=== PATIENT | female | born 1985 | race Caucasian/White ===

== ENCOUNTER 2018-03-11 16:37 | Emergency (ER) | payer OTHER ==
--- NOTE | 2018-03-11 17:01 | EDPHY ---
H & P Stated Complaint: L sided abd pain since thursday Time Seen by Provider: 03/11/18 16:54 - Personal History LMP (Females 10-55): 8-14 Days Ago Current Tetanus/Diphtheria Vaccine: Unsure Current Tetanus Diphtheria and Acellular Pertussis (TDAP): Unsure - Medical/Surgical History Hx Asthma: No Hx Chronic Respiratory Disease: No Hx Diabetes: No Hx Cardiac Disease: No Hx Renal Disease: No Hx Cirrhosis: No Hx Alcoholism: No Hx HIV/AIDS: No Hx Splenectomy or Spleen Trauma: No Other PMH: hypothyroid, L oopherctomy, IBS - Social History Smoking Status: Never smoked Constitutional: Initial Vital Signs Temperature (C) 37 C 03/11/18 16:40 Heart Rate 95 03/11/18 16:40 Respiratory Rate 16 03/11/18 16:40 Blood Pressure 120/77 03/11/18 16:40 O2 Sat (%) 99 03/11/18 16:40 O2 Delivery Mode Room Air Allergies/Adverse Reactions: cephalexin [From Keflex] Allergy (Verified 03/11/18 16:42) Medical Decision Making - Diagnostics Imaging Results: Imaging Impressions Pelvic/Renal Ultrasound 03/11/18 17:16 Impression: Negative ultrasound of the pelvis. Prior left nephrectomy. Results called to Dr. Gamal Hsu at 6:30 PM. Abdomen Ultrasound 03/11/18 17:36 Impression: 1. Normal ultrasound examination of the abdomen. Abdomen CT 03/11/18 18:35 Impression: 1. Moderate stool in the proximal colon. 2. Additional findings as above. Findings discussed with Dr. Gamal Hsu on March 11, 2018 at 1929 hours. Imaging: Discussed imaging studies w/ telecommunications operator Radiologist, I viewed and interpreted images myself ED Course/Re-evaluation: CHIEF COMPLAINT: Abdominal pain HISTORY OF PRESENT ILLNESS: The patient is a 32 y/o female with a history of IBS and a left-sided oophorectomy complaining of abdominal pain and nausea onset 3 days ago. For the last several years, she has had intermittent episodes of abdominal pain. Initially the patient was diagnosed with constipation and advised to have an enema which provided relief for 1 day. After the pain did not improve she saw a safety administrator who diagnosed the patient with IBS and pelvic floor dysfunction. Prior to onset of symptoms the patient had a dry cough, nausea, and hyperactive gag reflex so she saw her physician who thought she had an ulcer and started the patient on pantoprazole. On Thursday, 6 days ago, after starting the medication the patient's symptoms worsened. For the past three days she developed abdominal pain and diarrhea. Her symptoms did not improve after taking a laxative. She is still having abdominal pain. She is taking Bentyl for her symptoms. Her last colonoscopy was in 2012. Denies headache, chest pain, shortness of breath, urinary complaints, numbness, paresthesias, fever. REVIEW OF SYSTEMS: A 10 point review of systems was performed and is negative with the exception of the elements mentioned in the history of present illness. PHYSICAL EXAM: HR, BP, O2 Sat, RR. Temp noted General Appearance: Alert, nervous, well hydrated, appropriate, and non-toxic appearing. Head: Atraumatic without scalp tenderness or obvious injury Eyes: Pupils equal, round, reactive to light and accommodation, EOMI, no trauma , no injection. Ears: Clear bilaterally, no perforation, normal landmarks Nose: Atraumatic, no rhinorrhea, clear. Throat: There is no erythema or exudates, no lesions, normal tonsils, mucus membranes moist. Neck: Supple, nontender, no lymphadenopathy. Respiratory: No retractions, no distress, no wheezes, and no accessory muscle use. Lungs are clear to auscultation bilaterally. Cardiovascular: Regular rate and rhythm, no murmurs, rubs, or gallops. Good capillary refill all extremities. Gastrointestinal: Severe LLQ tenderness with voluntary guarding. Abdomen is soft, non-distended, no masses, no rebound, no peritoneal signs. Musculoskeletal: Normal active ROM of all extremities, atraumatic. Neurological: Alert, appropriate, and interactive. Nonfocal neuro. Skin: No rashes, good turgor, no nodules on palpation. Past medical history: Hypothyroid, IBS Past surgical history: Left oophorectomy Family history: Denies Social history: Visiting [place] from [place], single, employed DIAGNOSTICS/PROCEDURES/CRITICAL CARE TIME: Abdominal and Pelvic US: No acute findings. Abdominopelvic CT: No acute findings. There is minimal evidence of constipation. DIFFERENTIAL DIAGNOSIS: The differential diagnosis for the patient's abdominal pain included but was not limited to ovarian cyst, pelvic inflammatory disease, ovarian torsion, urinary tract infection, ectopic , cholecystitis, and appendicitis. MEDICAL DECISION MAKING: The patient is a 32 y/o female with an extensive history of IBS and a left- sided oophorectomy presenting with abdominal pain and nausea onset 3 days ago. On exam she has severe LLQ tenderness with voluntary guarding. Labs, abdomen and pelvic US ordered; 50mcg IV Fentanyl and 1L IV NS given. She is denying Zofran at this time. 1835: Spoke with radiologist who reports that the patient has a negative US; abdominopelvic CT ordered. 1844: Reassessed patient and discussed US and laboratory findings. She is comfortable with plan for CT. 1929: Spoke with Dr. Man, radiologist, who reports that there are no acute finding on patient's abdominopelvic CT. 1999: Reassessed patient and discussed normal CT findings. She is feeling mildly better. As she is visiting from [place], I have advised her to follow up at the [facility] with regards to her chronic abdominal pain. She will be discharged with a Vicodin prescription. Return precautions provided; patient is comfortable with this plan. - Data Points Laboratory Results: Laboratory Results 03/11/18 17:00 03/11/18 17:00 03/11/18 03/11/18 03/11/18 17:00 17:00 17:00 WBC RBC Hgb Hct MCV MCH MCHC RDW Plt Count MPV Neut % (Auto) Lymph % (Auto) Merrick % (Auto) Eos % (Auto) Baso % (Auto) Nucleat RBC Rel Count Absolute Neuts (auto) Absolute Lymphs (auto) Absolute Monos (auto) Absolute Eos (auto) Absolute Basos (auto) Absolute Nucleated RBC Immature Gran % Immature Gran # Sodium 142 mEq/L mEq/L (135-145) Potassium 3.4 mEq/L mEq/L (3.3-5.0) Chloride 106 mEq/L mEq/L (97-110) Carbon Dioxide 22 mEq/l mEq/l (22-31) Anion Gap 14 mEq/L mEq/L (8-16) BUN 7 mg/dL mg/dL (7-23) Creatinine 0.6 mg/dL mg/dL (0.6-1.0) Estimated GFR > 60 Glucose 80 mg/dL mg/dL (70-100) Calcium 9.6 mg/dL mg/dL (8.5-10.4) Total Bilirubin 0.6 mg/dL mg/dL (0.1-1.4) Conjugated Bilirubin 0.2 mg/dL mg/dL (0.0-0.5) Unconjugated Bilirubin 0.4 mg/dL mg/dL (0.0-1.1) AST 29 IU/L IU/L (14-46) ALT 23 IU/L IU/L (9-52) Alkaline Phosphatase 67 IU/L IU/L (38-126) Total Protein 8.3 g/dL H g/dL (6.3-8.2) Albumin 5.1 g/dL H g/dL (3.5-5.0) Lipase 194 IU/L IU/L (23-300) Beta HCG, Qual NEGATIVE Urine Color PALE YELLOW Urine Appearance CLEAR Urine pH 6.0 (5.0-7.5) Ur Specific Watson 1.001 L (1.002-1.030) Urine Protein NEGATIVE (NEGATIVE) Urine Ketones NEGATIVE (NEGATIVE) Urine Blood NEGATIVE (NEGATIVE) Urine Nitrate NEGATIVE (NEGATIVE) Urine Bilirubin NEGATIVE (NEGATIVE) Urine Urobilinogen NEGATIVE EU EU (0.2-1.0) Ur Leukocyte Esterase NEGATIVE (NEGATIVE) Urine RBC 1-3 /hpf /hpf (0-3) Urine WBC 1-3 /hpf /hpf (0-3) Ur Epithelial Cells NONE SEEN /lpf /lpf (NONE-1+) Urine Glucose NEGATIVE (NEGATIVE) 03/11/18 17:00 WBC 5.81 10^3/uL 10^3/uL (3.80-9.50) RBC 4.48 10^6/uL 10^6/uL (4.18-5.33) Hgb 14.0 g/dL g/dL (12.6-16.3) Hct 41.2 % % (38.0-47.0) MCV 92.0 fL fL (81.5-99.8) MCH 31.3 pg pg (27.9-34.1) MCHC 34.0 g/dL g/dL (32.4-36.7) RDW 12.5 % % (11.5-15.2) Plt Count 196 10^3/uL 10^3/uL (150-400) MPV 11.0 fL fL (8.7-11.7) Neut % (Auto) 61.6 % % (39.3-74.2) Lymph % (Auto) 29.4 % % (15.0-45.0) Merrick % (Auto) 7.1 % % (4.5-13.0) Eos % (Auto) 1.0 % % (0.6-7.6) Baso % (Auto) 0.7 % % (0.3-1.7) Nucleat RBC Rel Count 0.0 % % (0.0-0.2) Absolute Neuts (auto) 3.58 10^3/uL 10^3/uL (1.70-6.50) Absolute Lymphs (auto) 1.71 10^3/uL 10^3/uL (1.00-3.00) Absolute Monos (auto) 0.41 10^3/uL 10^3/uL (0.30-0.80) Absolute Eos (auto) 0.06 10^3/uL 10^3/uL (0.03-0.40) Absolute Basos (auto) 0.04 10^3/uL 10^3/uL (0.02-0.10) Absolute Nucleated RBC 0.00 10^3/uL 10^3/uL (0-0.01) Immature Gran % 0.2 % % (0.0-1.1) Immature Gran # 0.01 10^3/uL 10^3/uL (0.00-0.10) Sodium Potassium Chloride Carbon Dioxide Anion Gap BUN Creatinine Estimated GFR Glucose Calcium Total Bilirubin Conjugated Bilirubin Unconjugated Bilirubin AST ALT Alkaline Phosphatase Total Protein Albumin Lipase Beta HCG, Qual Urine Color Urine Appearance Urine pH Ur Specific Watson Urine Protein Urine Ketones Urine Blood Urine Nitrate Urine Bilirubin Urine Urobilinogen Ur Leukocyte Esterase Urine RBC Urine WBC Ur Epithelial Cells Urine Glucose Medications Given: Discontinued Medications Fentanyl (Sublimaze) 50 mcg IVP EDNOW ONE Stop: 03/11/18 17:16 Last Admin: 03/11/18 17:34 Dose: 50 mcg Sodium Chloride (Ns) 1,000 mls @ 0 mls/hr IV EDNOW ONE; Wide Open PRN Reason: Protocol Stop: 03/11/18 17:16 Last Admin: 03/11/18 17:35 Dose: 1,000 mls Departure - Departure Disposition: Home, Routine, Self-Care Clinical Impression: Abdominal pain Qualifiers: Abdominal location: left lower quadrant Qualified Code(s): R10.32 - Left lower quadrant pain Instructions: Irritable Bowel Syndrome (ED), Acute Abdominal Pain (ED), Chronic Abdominal Pain (ED) Additional Instructions: 1. Take Vicodin as prescribed. 2. Follow up with Dr. Castillo, safety administrator, regarding your chronic abdominal pain. 3. Follow up at the [facility] if possible with regards to your abdominal pain. 4. Return to the emergency apartment for fever, severe pain, inability to urinate or other concerns. Referrals: [facility] [Other] - As per Instructions Guero Castillo MD [Medical Doctor] - As per Instructions Report Scribed for: Gamal Hsu Report Scribed by: Julianna Thompson Date of Report: 03/11/18 Time of Report: 17:04
[2018-03-11] MEDS ORDERED: fentaNYL 100 MCG/2 ML INJ IVP ONE (17:15)
[2018-03-11] MEDS ORDERED: NS 1,000 ML IV ONE (17:15)
[2018-03-11 17:23] LABS: PLATELET COUNT 196 10^3/uL (150-400)
[2018-03-11] MEDS ORDERED: IOPAMIDOL (ISOVUE-300) 100 ML BTL ONE (18:39)
[2018-03-11] MEDS ORDERED: HYDROCOD/APAP 5/325 PREPACK#6 BTL TAKEHOME ONE (20:22)
[2018-03-11 20:32] VITALS: BP 113/82
== END 2018-03-11 20:32 | disposition home or self-care (01) ==
DX: R10.32 Left lower quadrant pain (principal); E86.9 Volume depletion, unspecified
CPT/HCPCS: 96374; J3010; Q9967